=== PATIENT | male | born 1970 | race Asian ===

== ENCOUNTER 2019-06-01 09:22 | Emergency (ER) | payer MEDICAID, OTHER ==
[~2019-06-01 09:22] MED LIST: AMLO5TAB9 PO; BENZ0.5T44 PO; CITA-106 PO; DIVA250T60 PO; FISH OIL/SALMO500 MG PO; LOSA50TA64 PO; METF-960 PO; RISP2 PO
== END 2019-06-01 12:49 | disposition left against medical advice (07) ==
LOC: EMS 09:24
DX: F29 Unspecified psychosis not due to a substance or known physiological condition (principal); Z53.21 Procedure and treatment not carried out due to patient leaving prior to being seen by health care provider